=== PATIENT | male | born 1975 | race Caucasian/White ===

== ENCOUNTER 2021-01-23 01:20 | Emergency (ER) | payer OTHER ==
[~2021-01-23] VITALS: Ht 165.1 cm; Wt 126.6 kg
[2021-01-23 01:27] VITALS: BP 150/87
--- NOTE | 2021-01-23 01:35 | NUR ---
COVERING PRIMARY RN FOR LUNCH RELIEF--- SEE COMPLETE ASSESMENT
[2021-01-23] MEDS ORDERED: KETOROLAC 30 MG/ML VIAL IVP ONE (01:50)
[2021-01-23] MEDS ORDERED: NACL 0.9% 1,000 ML IV ONE (01:50)
--- NOTE | 2021-01-23 01:53 | NUR ---
ER MD AT BEDSIDE EVALUATING PT AT THIS TIME.
--- NOTE | 2021-01-23 02:06 | NUR ---
18 G IV SITE ESTABLISHED TO R AC. SITE IS PATENT FLUSHED WITH 10 ML OF 0.9% NS. NO C/O DISCOMFORT, REDNESS, OR SWELLING NOTED. BLOOD DRAW COLLECTED THROUGH SITE & GIVEN TO [employer] MANA[employer].
[2021-01-23 02:07] LABS: APPEARANCE,URINE CLEAR (CLEAR); BILIRUBIN,URINE NEGATIVE (NEGATIVE); BLOOD, URINE TRACE-I (NEGATIVE); COLOR,URINE YELLOW (YELLOW); LEUKOCYTE ESTERASE ,URINE NEGATIVE (NEGATIVE); NITRITE, URINE NEGATIVE (NEGATIVE); UGLUCOSE NEGATIVE (NEGATIVE)
[2021-01-23 02:10] LABS: BASOPHILS # (AUTO) 0.1 K/uL (0.00-0.22); EOSINOPHILS # (AUTO) 0.3 K/uL (0-0.4); EOSINOPHILS % (AUTO) 2.9 % (0.0-4.0); HEMATOCRIT 42.5 % (36-52); HEMOGLOBIN 14.1 g/dL (12.0-18.0); LYMPHOCYTES # (AUTO) 2.6 K/uL (2.0-11.5); LYMPHOCYTES % (AUTO) 25.7 % (20.5-51.1); MEAN CORPUSCULAR HEMOGLOBIN 28 pg (27-31); MEAN CORPUSCULAR HGB CONC 33 g/dL (33-37); MEAN CORPUSCULAR VOLUME 83.9 fL (80-94); MONOCYTES # (AUTO) 0.6 K/uL (0.8-1.0); MONOCYTES % (AUTO) 6.3 % (1.7-9.3); NEUTROPHILS # (AUTO) 6.5 K/uL (1.8-7.7); NEUTROPHILS % (AUTO) 64.1 % (42.2-75.2); PLATELET COUNT (AUTO) 377 K/uL (140-450); RED BLOOD CELL COUNT(AUTO) 5.06 MIL/uL (4.20-6.10); RED CELL DISTRIBUTION WIDTH 13.5 % (11.6-13.7); WHITE BLOOD COUNT (AUTO) 10.2 K/uL (4.8-10.8)
--- NOTE | 2021-01-23 02:19 | NUR ---
PT TAKEN TO CT VIA W/C.
--- NOTE | 2021-01-23 02:27 | NUR ---
PT RETURNED FROM CT SCAN.
[2021-01-23 02:32] LABS: RBC,URINE 0-5 /HPF (0-5)
[2021-01-23 02:37] LABS: ALBUMIN 3.3 g/dL (3.4-5.0); ANION GAP 14.3 (8-16); CARBON DIOXIDE 27.5 mmol/L (21-32); CREATININE 1.2 mg/dL (0.6-1.3); POTASSIUM 3.8 mmol/L (3.5-5.1); TOTAL BILIRUBIN 0.3 mg/dL (0.0-1.0)
--- NOTE | 2021-01-23 03:30 | NUR ---
PT laying in bed in no acute distress noted, breathing even and unlabored as evidence by rise and fall of chest wall. No c/o pain or discomfort at this time.
[2021-01-23] MEDS ORDERED: LEVOFLOXACIN 750 MG/D5W PREMIX 150 ML IV ONE (04:00)
[2021-01-23] MEDS ORDERED: metroNIDAZOLE 500 MG/NS PREMIX 100 ML IV ONE (04:00)
--- NOTE | 2021-01-23 04:21 | NUR ---
BLOOD CULTURES COLLECTED AND WALKED TO LAB.
[2021-01-23] MEDS ORDERED: CIPR250T6 PO (05:28)
[2021-01-23] MEDS ORDERED: METR500T1 PO (05:28)
--- NOTE | 2021-01-23 05:45 | NUR ---
Pt laying in bed in no acute distress noted, IVPB of Levaquin running at 100ml/hr.
--- NOTE | 2021-01-23 06:45 | NUR ---
Patient discharged with v/s stable. Written and verbal after care instructions given and explained BY ER MD CHAUDHRY. Patient alert, oriented and verbalized understanding of instructions. Ambulatory with steady gait. All questions addressed prior to discharge. ID band removed. Patient advised to follow up with PMD. Rx of CIPRO & FLAGYL given. Patient educated on indication of medication including possible reaction and side effects. Opportunity to ask questions provided and answered. IV removed, catheter intact and site benign. Applied folded 4x4 gauze and tape to stop bleeding.
[2021-01-23 06:50] VITALS: BP 144/78
== END 2021-01-23 06:50 | disposition home or self-care (01) ==
LOC: MED 01:20
DX: K57.32 Diverticulitis of large intestine without perforation or abscess without bleeding (principal)
CPT/HCPCS: 36415; 74176; 80053; 81001; 82150; 83690; 85025; 87040; 87086; 96361; 96365; 96367; 96375; 99284; J1885; J1956; J3490; J7030

== ENCOUNTER 2021-10-22 09:36 | Inpatient (IN) | payer MEDICAID, SELFPAY ==
[~2021-10-22] VITALS: Ht 185.4 cm; Wt 133.8 kg
[2021-10-22] VITALS (14 sets, daily range): BP systolic 75–108; BP diastolic 52–83
[~2021-10-22 09:36] MED LIST: CIPR250T6 PO; METR500T1 PO
[2021-10-22] MEDS ORDERED: NALOXONE 0.4 MG/ML VIAL ONE (09:38)
[2021-10-22] MEDS ORDERED: INTUBATION KIT MC ONE (09:42)
[2021-10-22] MEDS ORDERED: NOREPINEPHRINE 4 MG/4 ML VIAL IV ONE (09:52)
[2021-10-22] MEDS ORDERED: DEXTROSE 50% 50 ML SYR IVP ONE ×2 (09:59→10:10)
[2021-10-22] MEDS ORDERED: PROPOFOL 1000 MG/100 ML PREMIX 100 ML IV ONE ×2 (10:02→10:10)
[2021-10-22] MEDS ORDERED: NALOXONE 0.4 MG/ML VIAL IVP ONE (10:10)
[2021-10-22 11:12] LABS: HEMATOCRIT 45.8 % (36-52); HEMOGLOBIN 14.7 g/dL (12.0-18.0); MEAN CORPUSCULAR HEMOGLOBIN 28 pg (27-31); MEAN CORPUSCULAR HGB CONC 32 g/dL (33-37); MEAN CORPUSCULAR VOLUME 85.4 fL (80-94); PLATELET COUNT (AUTO) 286 K/uL (140-450); RED BLOOD CELL COUNT(AUTO) 5.36 MIL/uL (4.20-6.10); RED CELL DISTRIBUTION WIDTH 15.9 % (11.6-13.7); WHITE BLOOD COUNT (AUTO) 24.6 K/uL (4.8-10.8)
[2021-10-22 11:26] LABS: ALBUMIN 2.8 g/dL (3.4-5.0); ANION GAP 16.5 (8-16); CARBON DIOXIDE 26.4 mmol/L (21-32); CREATININE 2.9 mg/dL (0.6-1.3); POTASSIUM 4.9 mmol/L (3.5-5.1); TOTAL BILIRUBIN 0.2 mg/dL (0.0-1.0)
[2021-10-22] MEDS ORDERED: CEFEPIME 2,000 MG in DEXTROSE 5% 100 ML IV ONE (11:40)
[2021-10-22] MEDS ORDERED: VANCOMYCIN 1,000 MG in DEXTROSE 5% 250 ML IV ONE (11:40)
[2021-10-22] MEDS ORDERED: NACL 0.9% 1,000 ML IV ONE ×2 (11:40)
[2021-10-22] MEDS ORDERED: ETOMIDATE 20 MG/10 ML VIAL IVP ONE (12:00)
[2021-10-22] MEDS ORDERED: ROCURONIUM 50 MG/5 ML VIAL IV ONE (12:00)
[2021-10-22 12:12] LABS: LYMPHOCYTES % (MANUAL) 6 % (20-46); MONOCYTES % (MANUAL) 4 % (5-12)
[2021-10-22 12:19] LABS: ACETAMINOPHEN < 0.5 ug/ml (10-30); SALICYLATE < 2.8 mg/dL (2.8-20.0)
[2021-10-22 12:31] LABS: PROTHROMBIN TIME 13.4 secs (10.8-13.4)
[2021-10-22] MEDS ORDERED: fentaNYL citrate 1 MG in NACL 0.9% 80 ML IV PRN (13:35)
[2021-10-22] MEDS ORDERED: MIDAZOLAM MDV 50 MG in NACL 0.9% 40 ML IV PRN (13:35)
[2021-10-22 13:39] LABS: APPEARANCE,URINE HAZY (CLEAR); BILIRUBIN,URINE NEGATIVE (NEGATIVE); COLOR,URINE ORANGE (YELLOW); UGLUCOSE NEGATIVE (NEGATIVE)
[2021-10-22] MEDS ORDERED: ASPIRIN 325 MG TAB PO SCH (13:45)
[2021-10-22 13:48] LABS: BARBITURATE, URINE NEGATIVE ng/ml (NEG <=200); BENZODIAZEPINE, URINE NEGATIVE ng/mL (NEG <=200); CANNABINOID, URINE NEGATIVE ng/mL (NEG <=50); COCAINE, URINE NEGATIVE ng/mL (NEG <=300); OPIATE, URINE NEGATIVE ng/mL (NEG <=2000); PHENCYCLIDINE SCREEN,URINE NEGATIVE ng/mL (NEG <=25)
[2021-10-22 13:55] LABS: NITRITE, URINE POSITIVE (NEGATIVE)
[2021-10-22 13:56] LABS: BLOOD, URINE 1+ (NEGATIVE)
[2021-10-22 13:57] LABS: LEUKOCYTE ESTERASE ,URINE 1+ (NEGATIVE); RBC,URINE 0-5 /HPF (0-5)
[2021-10-22] MEDS ORDERED: ZOLPIDEM 5 MG TAB PO PRN (14:55)
[2021-10-22] MEDS ORDERED: MAG SULF 2000 MG/WATER PREMIX 50 ML IV PRN (14:55)
[2021-10-22] MEDS ORDERED: SODIUM PHOS / POTASSIUM PHOS 1 PKT PDR PO PRN (14:55)
[2021-10-22] MEDS ORDERED: HYDROcodone/APAP 5/325 MG 1 TAB TAB PO PRN (14:55)
[2021-10-22] MEDS ORDERED: ONDANSETRON 4 MG/2 ML VIAL IVP PRN (14:55)
[2021-10-22] MEDS ORDERED: LORazepam 2 MG/ML VIAL IM/IVP PRN (14:55)
[2021-10-22] MEDS ORDERED: MORPHINE SULFATE 2 MG/ML SYR IVP PRN (14:55)
[2021-10-22] MEDS ORDERED: DOCUSATE SODIUM 100 MG GELCAP PO PRN (14:55)
[2021-10-22] MEDS ORDERED: ACETAMINOPHEN 325 MG TAB PO PRN (14:55)
[2021-10-22 15:47] LABS: PROTHROMBIN TIME 12.5 secs (10.8-13.4)
[2021-10-22 15:58] LABS: CHOL/HDL RATIO 2.8 (1-4.5); FREE T4 (FREE THYROXINE) 0.91 ng/dL (0.76-1.46); PHOSPHORUS 6.5 mg/dL (2.5-4.9); THYROID STIMULATING HORMONE 4.88 uIU/mL (0.34-3.74)
[2021-10-22] MEDS: fentaNYL citrate 2.5 MG in NACL 0.9% 200 ML IV PRN (16:20)
[2021-10-22] MEDS: NACL 0.9% 1,000 ML IV SCH (16:20)
[2021-10-22] MEDS ORDERED: HEPARIN PER PHARMACY MC PRN (17:30)
[2021-10-22] MEDS ORDERED: ASPIRIN 325 MG TAB ONE (17:47)
[2021-10-22] MEDS: hePARIN / DEXT 5% PREMIX 250 ML IV SCH (18:05)
[2021-10-22] MEDS: NOREPINEPHRINE 8 MG in DEXTROSE 5% 250 ML IV PRN (18:24)
[2021-10-22] MEDS: PIPERACILLIN/TAZOBACTAM 3.375 GM in DEXTROSE 5% 50 ML IV SCH (20:40)
[2021-10-23] VITALS (31 sets, daily range): BP systolic 79–128; BP diastolic 51–92
[2021-10-23] MEDS: PIPERACILLIN/TAZOBACTAM 3.375 GM in DEXTROSE 5% 50 ML IV SCH ×3 (05:30→20:12)
[2021-10-23 06:02] LABS: BASOPHILS % (AUTO) 0.1 % (0.0-2.0); EOSINOPHILS % (AUTO) 0.1 % (0.0-4.0); HEMATOCRIT 42.6 % (36-52); HEMOGLOBIN 13.9 g/dL (12.0-18.0); LYMPHOCYTES # (AUTO) 0.7 K/uL (2.0-11.5); LYMPHOCYTES % (AUTO) 5.8 % (20.5-51.1); MEAN CORPUSCULAR HEMOGLOBIN 27 pg (27-31); MEAN CORPUSCULAR HGB CONC 33 g/dL (33-37); MEAN CORPUSCULAR VOLUME 83.5 fL (80-94); MONOCYTES # (AUTO) 0.7 K/uL (0.8-1.0); MONOCYTES % (AUTO) 5.2 % (1.7-9.3); NEUTROPHILS # (AUTO) 11.5 K/uL (1.8-7.7); NEUTROPHILS % (AUTO) 88.8 % (42.2-75.2); PLATELET COUNT (AUTO) 279 K/uL (140-450); RED CELL DISTRIBUTION WIDTH 15.2 % (11.6-13.7); WHITE BLOOD COUNT (AUTO) 12.9 K/uL (4.8-10.8)
[2021-10-23 06:23] LABS: ALBUMIN 2.1 g/dL (3.4-5.0); ANION GAP 14.8 (8-16); CARBON DIOXIDE 24.7 mmol/L (21-32); CREATININE 3.3 mg/dL (0.6-1.3); POTASSIUM 4.5 mmol/L (3.5-5.1); TOTAL BILIRUBIN 0.3 mg/dL (0.0-1.0)
[2021-10-23] MEDS ORDERED: NOREPINEPHRINE 4 MG/4 ML VIAL IV ONE (07:36)
[2021-10-23] MEDS: NOREPINEPHRINE 8 MG in DEXTROSE 5% 250 ML IV PRN (07:44)
[2021-10-23] MEDS: ASPIRIN 81 MG TAB.CHEW PO SCH (08:48)
[2021-10-23] MEDS: NACL 0.9% 1,000 ML IV SCH ×3 (09:40→20:13)
[2021-10-23] MEDS: hePARIN / DEXT 5% PREMIX 250 ML IV SCH (13:30)
[2021-10-24] VITALS (27 sets, daily range): BP systolic 107–141; BP diastolic 61–88
[2021-10-24] MEDS: fentaNYL citrate 2.5 MG in NACL 0.9% 200 ML IV PRN (02:38)
[2021-10-24 05:17] LABS: BASOPHILS % (AUTO) 0.1 % (0.0-2.0); EOSINOPHILS % (AUTO) 0.2 % (0.0-4.0); HEMATOCRIT 39.9 % (36-52); HEMOGLOBIN 12.7 g/dL (12.0-18.0); LYMPHOCYTES # (AUTO) 1.6 K/uL (2.0-11.5); LYMPHOCYTES % (AUTO) 13.3 % (20.5-51.1); MEAN CORPUSCULAR HEMOGLOBIN 27 pg (27-31); MEAN CORPUSCULAR HGB CONC 32 g/dL (33-37); MEAN CORPUSCULAR VOLUME 85.3 fL (80-94); MONOCYTES # (AUTO) 0.7 K/uL (0.8-1.0); NEUTROPHILS # (AUTO) 9.4 K/uL (1.8-7.7); NEUTROPHILS % (AUTO) 80.4 % (42.2-75.2); PLATELET COUNT (AUTO) 220 K/uL (140-450); RED BLOOD CELL COUNT(AUTO) 4.67 MIL/uL (4.20-6.10); RED CELL DISTRIBUTION WIDTH 16.1 % (11.6-13.7); WHITE BLOOD COUNT (AUTO) 11.7 K/uL (4.8-10.8)
[2021-10-24 05:45] LABS: ALBUMIN 1.8 g/dL (3.4-5.0); ANION GAP 13.3 (8-16); CREATININE 2.8 mg/dL (0.6-1.3); MAGNESIUM 2.2 mg/dL (1.8-2.4); POTASSIUM 4.3 mmol/L (3.5-5.1); TOTAL BILIRUBIN 0.2 mg/dL (0.0-1.0)
[2021-10-24] MEDS: PIPERACILLIN/TAZOBACTAM 3.375 GM in DEXTROSE 5% 50 ML IV SCH ×2 (05:54→12:31)
[2021-10-24] MEDS: hePARIN / DEXT 5% PREMIX 250 ML IV SCH ×4 (06:40→21:46)
[2021-10-24] MEDS: NACL 0.9% 1,000 ML IV SCH ×3 (07:05→20:26)
[2021-10-24] MEDS: ASPIRIN 81 MG TAB.CHEW PO SCH (09:08)
[2021-10-24] MEDS ORDERED: MEROPENEM 1,000 MG VIAL IV ONE (20:41)
[2021-10-24] MEDS: MEROPENEM 1,000 MG in NACL 0.9% 100 ML IV SCH (20:46)
[2021-10-25] VITALS (32 sets, daily range): BP systolic 97–164; BP diastolic 60–99
[2021-10-25 03:17] LABS: BASOPHILS # (AUTO) 0.1 K/uL (0.00-0.22); BASOPHILS % (AUTO) 0.4 % (0.0-2.0); EOSINOPHILS # (AUTO) 0.1 K/uL (0-0.4); HEMATOCRIT 35.7 % (36-52); HEMOGLOBIN 11.8 g/dL (12.0-18.0); LYMPHOCYTES # (AUTO) 2.2 K/uL (2.0-11.5); LYMPHOCYTES % (AUTO) 18.1 % (20.5-51.1); MEAN CORPUSCULAR HEMOGLOBIN 28 pg (27-31); MEAN CORPUSCULAR HGB CONC 33 g/dL (33-37); MEAN CORPUSCULAR VOLUME 83.3 fL (80-94); MONOCYTES # (AUTO) 0.9 K/uL (0.8-1.0); MONOCYTES % (AUTO) 7.1 % (1.7-9.3); NEUTROPHILS # (AUTO) 9.1 K/uL (1.8-7.7); NEUTROPHILS % (AUTO) 73.4 % (42.2-75.2); PLATELET COUNT (AUTO) 237 K/uL (140-450); RED BLOOD CELL COUNT(AUTO) 4.29 MIL/uL (4.20-6.10); WHITE BLOOD COUNT (AUTO) 12.4 K/uL (4.8-10.8)
[2021-10-25 03:36] LABS: ALBUMIN 1.9 g/dL (3.4-5.0); ANION GAP 13.4 (8-16); CARBON DIOXIDE 25.7 mmol/L (21-32); CREATININE 2.1 mg/dL (0.6-1.3); MAGNESIUM 2.5 mg/dL (1.8-2.4); POTASSIUM 4.1 mmol/L (3.5-5.1); TOTAL BILIRUBIN 0.4 mg/dL (0.0-1.0)
[2021-10-25] MEDS: hePARIN / DEXT 5% PREMIX 250 ML IV SCH ×3 (03:56→20:10)
[2021-10-25] MEDS: MIDAZOLAM MDV 100 MG in NACL 0.9% 80 ML IV PRN (05:28)
[2021-10-25] MEDS: ASPIRIN 81 MG TAB.CHEW PO SCH (08:48)
[2021-10-25] MEDS: MEROPENEM 1,000 MG in NACL 0.9% 100 ML IV SCH ×2 (08:49→20:09)
[2021-10-25 08:58] LABS: PROTHROMBIN TIME 10.2 secs (10.8-13.4)
[2021-10-25] MEDS: NACL 0.9% 1,000 ML IV SCH ×2 (12:43→23:04)
[2021-10-26] VITALS (30 sets, daily range): BP systolic 102–168; BP diastolic 63–93
[2021-10-26] MEDS: MIDAZOLAM MDV 100 MG in NACL 0.9% 80 ML IV PRN ×2 (02:38→18:30)
[2021-10-26] MEDS: fentaNYL citrate 2.5 MG in NACL 0.9% 200 ML IV PRN ×2 (06:04→18:25)
[2021-10-26 06:35] LABS: BASOPHILS # (AUTO) 0.1 K/uL (0.00-0.22); BASOPHILS % (AUTO) 0.6 % (0.0-2.0); EOSINOPHILS # (AUTO) 0.3 K/uL (0-0.4); HEMATOCRIT 33.1 % (36-52); HEMOGLOBIN 10.9 g/dL (12.0-18.0); LYMPHOCYTES # (AUTO) 1.8 K/uL (2.0-11.5); LYMPHOCYTES % (AUTO) 17.3 % (20.5-51.1); MEAN CORPUSCULAR HEMOGLOBIN 28 pg (27-31); MEAN CORPUSCULAR HGB CONC 33 g/dL (33-37); MEAN CORPUSCULAR VOLUME 83.7 fL (80-94); MONOCYTES # (AUTO) 0.7 K/uL (0.8-1.0); MONOCYTES % (AUTO) 6.7 % (1.7-9.3); NEUTROPHILS # (AUTO) 7.4 K/uL (1.8-7.7); NEUTROPHILS % (AUTO) 72.4 % (42.2-75.2); PLATELET COUNT (AUTO) 223 K/uL (140-450); RED BLOOD CELL COUNT(AUTO) 3.95 MIL/uL (4.20-6.10); RED CELL DISTRIBUTION WIDTH 15.7 % (11.6-13.7); WHITE BLOOD COUNT (AUTO) 10.3 K/uL (4.8-10.8)
[2021-10-26 07:34] LABS: ALBUMIN 1.7 g/dL (3.4-5.0); ANION GAP 14.1 (8-16); CARBON DIOXIDE 25.2 mmol/L (21-32); CREATININE 1.5 mg/dL (0.6-1.3); MAGNESIUM 2.2 mg/dL (1.8-2.4); POTASSIUM 3.3 mmol/L (3.5-5.1); TOTAL BILIRUBIN 0.3 mg/dL (0.0-1.0)
[2021-10-26] MEDS: hePARIN / DEXT 5% PREMIX 250 ML IV SCH ×3 (08:30→18:23)
[2021-10-26] MEDS: NACL 0.9% 1,000 ML IV SCH (08:45)
[2021-10-26] MEDS: ASPIRIN 81 MG TAB.CHEW PO SCH (08:55)
[2021-10-26] MEDS: MEROPENEM 1,000 MG in NACL 0.9% 100 ML IV SCH ×2 (08:55→21:31)
[2021-10-26] MEDS: FUROSEMIDE 40 MG/4 ML VIAL IVP SCH (17:08)
[2021-10-27] VITALS (31 sets, daily range): BP systolic 117–155; BP diastolic 59–97
[2021-10-27] MEDS: hePARIN / DEXT 5% PREMIX 250 ML IV SCH (05:07)
[2021-10-27 06:21] LABS: BASOPHILS # (AUTO) 0.1 K/uL (0.00-0.22); BASOPHILS % (AUTO) 0.7 % (0.0-2.0); EOSINOPHILS # (AUTO) 0.5 K/uL (0-0.4); EOSINOPHILS % (AUTO) 4.2 % (0.0-4.0); HEMATOCRIT 34.8 % (36-52); HEMOGLOBIN 11.6 g/dL (12.0-18.0); LYMPHOCYTES # (AUTO) 2.2 K/uL (2.0-11.5); LYMPHOCYTES % (AUTO) 18.1 % (20.5-51.1); MEAN CORPUSCULAR HEMOGLOBIN 28 pg (27-31); MEAN CORPUSCULAR HGB CONC 33 g/dL (33-37); MEAN CORPUSCULAR VOLUME 82.8 fL (80-94); MONOCYTES # (AUTO) 0.9 K/uL (0.8-1.0); MONOCYTES % (AUTO) 7.4 % (1.7-9.3); NEUTROPHILS # (AUTO) 8.5 K/uL (1.8-7.7); NEUTROPHILS % (AUTO) 69.6 % (42.2-75.2); PLATELET COUNT (AUTO) 251 K/uL (140-450); RED CELL DISTRIBUTION WIDTH 15.8 % (11.6-13.7); WHITE BLOOD COUNT (AUTO) 12.2 K/uL (4.8-10.8)
[2021-10-27 06:22] LABS: PROTHROMBIN TIME 10.1 secs (10.8-13.4)
[2021-10-27 07:02] LABS: ALBUMIN 1.8 g/dL (3.4-5.0); ANION GAP 11.8 (8-16); CARBON DIOXIDE 26.6 mmol/L (21-32); CREATININE 1.3 mg/dL (0.6-1.3); MAGNESIUM 2.1 mg/dL (1.8-2.4); POTASSIUM 3.4 mmol/L (3.5-5.1); TOTAL BILIRUBIN 0.3 mg/dL (0.0-1.0)
[2021-10-27] MEDS: fentaNYL citrate 2.5 MG in NACL 0.9% 200 ML IV PRN (07:32)
[2021-10-27] MEDS: MEROPENEM 1,000 MG in NACL 0.9% 100 ML IV SCH ×2 (09:13→20:22)
[2021-10-27] MEDS: FUROSEMIDE 40 MG/4 ML VIAL IVP SCH (09:14)
[2021-10-27] MEDS: ASPIRIN 81 MG TAB.CHEW PO SCH (09:14)
[2021-10-27 16:05] LABS: ALBUMIN 1.9 g/dL (3.4-5.0); ANION GAP 9.4 (8-16); CARBON DIOXIDE 29.7 mmol/L (21-32); CREATININE 1.4 mg/dL (0.6-1.3); POTASSIUM 3.1 mmol/L (3.5-5.1); TOTAL BILIRUBIN 0.4 mg/dL (0.0-1.0)
[2021-10-27] MEDS: POTASSIUM CHLORIDE 10 MEQ TABER PO PRN (16:36)
[2021-10-27] MEDS: MIDAZOLAM MDV 100 MG in NACL 0.9% 80 ML IV PRN (18:15)
[2021-10-28] VITALS (28 sets, daily range): BP systolic 120–140; BP diastolic 78–98
[2021-10-28 05:43] LABS: BASOPHILS % (AUTO) 0.3 % (0.0-2.0); EOSINOPHILS # (AUTO) 0.4 K/uL (0-0.4); EOSINOPHILS % (AUTO) 3.2 % (0.0-4.0); HEMATOCRIT 35.2 % (36-52); HEMOGLOBIN 11.8 g/dL (12.0-18.0); LYMPHOCYTES # (AUTO) 1.7 K/uL (2.0-11.5); MEAN CORPUSCULAR HEMOGLOBIN 27 pg (27-31); MEAN CORPUSCULAR HGB CONC 33 g/dL (33-37); MEAN CORPUSCULAR VOLUME 81.7 fL (80-94); MONOCYTES % (AUTO) 7.3 % (1.7-9.3); NEUTROPHILS % (AUTO) 76.2 % (42.2-75.2); PLATELET COUNT (AUTO) 264 K/uL (140-450); RED BLOOD CELL COUNT(AUTO) 4.31 MIL/uL (4.20-6.10); RED CELL DISTRIBUTION WIDTH 15.3 % (11.6-13.7); WHITE BLOOD COUNT (AUTO) 13.1 K/uL (4.8-10.8)
[2021-10-28 06:06] LABS: ALBUMIN 1.8 g/dL (3.4-5.0); ANION GAP 8.9 (8-16); CARBON DIOXIDE 29.5 mmol/L (21-32); CREATININE 1.3 mg/dL (0.6-1.3); POTASSIUM 3.4 mmol/L (3.5-5.1); TOTAL BILIRUBIN 0.4 mg/dL (0.0-1.0)
[2021-10-28 06:09] LABS: PHOSPHORUS 4.7 mg/dL (2.5-4.9)
[2021-10-28] MEDS: fentaNYL citrate 2.5 MG in NACL 0.9% 200 ML IV PRN ×2 (08:18→20:26)
[2021-10-28] MEDS: MEROPENEM 1,000 MG in NACL 0.9% 100 ML IV SCH ×2 (09:29→20:33)
[2021-10-28] MEDS: FUROSEMIDE 40 MG/4 ML VIAL IVP SCH (09:29)
[2021-10-28] MEDS: ASPIRIN 81 MG TAB.CHEW PO SCH (09:30)
[2021-10-28] MEDS: POTASSIUM CHLORIDE 10 MEQ TABER PO PRN (09:52)
[2021-10-29] VITALS (32 sets, daily range): BP systolic 105–127; BP diastolic 66–86
[2021-10-29 05:59] LABS: ALBUMIN 1.8 g/dL (3.4-5.0); ANION GAP 10.9 (8-16); CARBON DIOXIDE 26.9 mmol/L (21-32); CREATININE 1.3 mg/dL (0.6-1.3); POTASSIUM 3.8 mmol/L (3.5-5.1); TOTAL BILIRUBIN 0.3 mg/dL (0.0-1.0)
[2021-10-29 06:31] LABS: BASOPHILS % (AUTO) 0.4 % (0.0-2.0); EOSINOPHILS # (AUTO) 0.4 K/uL (0-0.4); EOSINOPHILS % (AUTO) 3.4 % (0.0-4.0); HEMATOCRIT 35.2 % (36-52); HEMOGLOBIN 11.6 g/dL (12.0-18.0); LYMPHOCYTES # (AUTO) 1.9 K/uL (2.0-11.5); LYMPHOCYTES % (AUTO) 14.7 % (20.5-51.1); MEAN CORPUSCULAR HEMOGLOBIN 27 pg (27-31); MEAN CORPUSCULAR HGB CONC 33 g/dL (33-37); MEAN CORPUSCULAR VOLUME 82.8 fL (80-94); MONOCYTES # (AUTO) 0.9 K/uL (0.8-1.0); MONOCYTES % (AUTO) 7.4 % (1.7-9.3); NEUTROPHILS # (AUTO) 9.4 K/uL (1.8-7.7); NEUTROPHILS % (AUTO) 74.1 % (42.2-75.2); PLATELET COUNT (AUTO) 297 K/uL (140-450); RED BLOOD CELL COUNT(AUTO) 4.25 MIL/uL (4.20-6.10); RED CELL DISTRIBUTION WIDTH 15.3 % (11.6-13.7)
[2021-10-29 07:32] LABS: WHITE BLOOD COUNT (AUTO) 12.8 K/uL (4.8-10.8)
[2021-10-29] MEDS: MEROPENEM 1,000 MG in NACL 0.9% 100 ML IV SCH ×2 (09:16→20:30)
[2021-10-29] MEDS: PANTOPRAZOLE 40 MG INJ VIAL IVP SCH (09:16)
[2021-10-29] MEDS: FUROSEMIDE 40 MG/4 ML VIAL IVP SCH (09:17)
[2021-10-29] MEDS: ASPIRIN 81 MG TAB.CHEW PO SCH (09:17)
[2021-10-29] MEDS: fentaNYL citrate 2.5 MG in NACL 0.9% 200 ML IV PRN (13:17)
[2021-10-29] MEDS ORDERED: VANCOMYCIN PER PHARMACY MC PRN (16:00)
[2021-10-29] MEDS ORDERED: VANCOMYCIN 1,500 MG in DEXTROSE 5% 500 ML IV SCH (17:00)
[2021-10-29] MEDS: MIDAZOLAM MDV 100 MG in NACL 0.9% 80 ML IV PRN (18:37)
[2021-10-30] VITALS (30 sets, daily range): BP systolic 109–140; BP diastolic 71–89
[2021-10-30] MEDS: fentaNYL citrate 2.5 MG in NACL 0.9% 200 ML IV PRN ×2 (01:30→13:27)
[2021-10-30 06:23] LABS: BASOPHILS # (AUTO) 0.1 K/uL (0.00-0.22); BASOPHILS % (AUTO) 0.6 % (0.0-2.0); EOSINOPHILS # (AUTO) 0.5 K/uL (0-0.4); EOSINOPHILS % (AUTO) 4.3 % (0.0-4.0); HEMOGLOBIN 11.8 g/dL (12.0-18.0); LYMPHOCYTES # (AUTO) 2.4 K/uL (2.0-11.5); LYMPHOCYTES % (AUTO) 19.3 % (20.5-51.1); MEAN CORPUSCULAR HEMOGLOBIN 27 pg (27-31); MEAN CORPUSCULAR HGB CONC 33 g/dL (33-37); MEAN CORPUSCULAR VOLUME 82.9 fL (80-94); MONOCYTES # (AUTO) 0.9 K/uL (0.8-1.0); MONOCYTES % (AUTO) 7.2 % (1.7-9.3); NEUTROPHILS # (AUTO) 8.5 K/uL (1.8-7.7); PLATELET COUNT (AUTO) 315 K/uL (140-450); RED BLOOD CELL COUNT(AUTO) 4.35 MIL/uL (4.20-6.10); RED CELL DISTRIBUTION WIDTH 15.1 % (11.6-13.7); WHITE BLOOD COUNT (AUTO) 12.5 K/uL (4.8-10.8)
[2021-10-30 06:37] LABS: NEUTROPHILS % (AUTO) 68.6 % (42.2-75.2)
[2021-10-30] MEDS: PANTOPRAZOLE 40 MG INJ VIAL IVP SCH ×2 (08:50→08:52)
[2021-10-30] MEDS: ASPIRIN 81 MG TAB.CHEW PO SCH (08:53)
[2021-10-30] MEDS: FUROSEMIDE 40 MG/4 ML VIAL IVP SCH (08:53)
[2021-10-30] MEDS: MEROPENEM 1,000 MG in NACL 0.9% 100 ML IV SCH ×2 (08:54→20:30)
[2021-10-30] MEDS: VANCOMYCIN 1,000 MG in DEXTROSE 5% 250 ML IV SCH ×2 (12:00→16:09)
[2021-10-30 15:52] LABS: ALBUMIN 2.1 g/dL (3.4-5.0); ANION GAP 14.3 (8-16); CARBON DIOXIDE 27.2 mmol/L (21-32); CREATININE 1.3 mg/dL (0.6-1.3); POTASSIUM 3.5 mmol/L (3.5-5.1); TOTAL BILIRUBIN 0.4 mg/dL (0.0-1.0)
[2021-10-31] VITALS (30 sets, daily range): BP systolic 107–168; BP diastolic 66–114
[2021-10-31 06:24] LABS: BASOPHILS % (AUTO) 0.3 % (0.0-2.0); EOSINOPHILS # (AUTO) 0.2 K/uL (0-0.4); EOSINOPHILS % (AUTO) 1.9 % (0.0-4.0); HEMATOCRIT 34.6 % (36-52); HEMOGLOBIN 11.5 g/dL (12.0-18.0); LYMPHOCYTES # (AUTO) 1.4 K/uL (2.0-11.5); LYMPHOCYTES % (AUTO) 11.8 % (20.5-51.1); MEAN CORPUSCULAR HEMOGLOBIN 27 pg (27-31); MEAN CORPUSCULAR HGB CONC 33 g/dL (33-37); MONOCYTES # (AUTO) 0.8 K/uL (0.8-1.0); MONOCYTES % (AUTO) 6.7 % (1.7-9.3); NEUTROPHILS # (AUTO) 9.3 K/uL (1.8-7.7); NEUTROPHILS % (AUTO) 79.3 % (42.2-75.2); PLATELET COUNT (AUTO) 347 K/uL (140-450); RED BLOOD CELL COUNT(AUTO) 4.22 MIL/uL (4.20-6.10); RED CELL DISTRIBUTION WIDTH 14.9 % (11.6-13.7); WHITE BLOOD COUNT (AUTO) 11.8 K/uL (4.8-10.8)
[2021-10-31] MEDS: FUROSEMIDE 40 MG/4 ML VIAL IVP SCH (08:32)
[2021-10-31] MEDS: ASPIRIN 81 MG TAB.CHEW PO SCH (08:32)
[2021-10-31] MEDS: PANTOPRAZOLE 40 MG INJ VIAL IVP SCH (08:32)
[2021-10-31] MEDS: MEROPENEM 1,000 MG in NACL 0.9% 100 ML IV SCH ×2 (09:29→20:00)
[2021-10-31] MEDS: MIDAZOLAM MDV 50 MG in NACL 0.9% 40 ML IV PRN (09:34)
[2021-10-31] MEDS ORDERED: VANCOMYCIN 1,750 MG in DEXTROSE 5% 500 ML IV SCH (10:00)
[2021-10-31 14:58] LABS: ANION GAP 11.3 (8-16); CARBON DIOXIDE 29.4 mmol/L (21-32); CREATININE 1.2 mg/dL (0.6-1.3); POTASSIUM 3.7 mmol/L (3.5-5.1); TOTAL BILIRUBIN 0.4 mg/dL (0.0-1.0)
[2021-10-31] MEDS: fentaNYL citrate 2.5 MG in NACL 0.9% 200 ML IV PRN (15:55)
[2021-11-01] VITALS (25 sets, daily range): BP systolic 105–144; BP diastolic 66–93
[2021-11-01] MEDS: MEROPENEM 1,000 MG in NACL 0.9% 100 ML IV SCH ×3 (04:20→21:00)
[2021-11-01] MEDS: fentaNYL citrate 2.5 MG in NACL 0.9% 200 ML IV PRN ×2 (04:20→15:20)
[2021-11-01 05:42] LABS: BASOPHILS # (AUTO) 0.1 K/uL (0.00-0.22); BASOPHILS % (AUTO) 0.4 % (0.0-2.0); EOSINOPHILS # (AUTO) 0.5 K/uL (0-0.4); EOSINOPHILS % (AUTO) 3.3 % (0.0-4.0); HEMATOCRIT 35.7 % (36-52); HEMOGLOBIN 11.8 g/dL (12.0-18.0); LYMPHOCYTES # (AUTO) 2.6 K/uL (2.0-11.5); LYMPHOCYTES % (AUTO) 18.8 % (20.5-51.1); MEAN CORPUSCULAR HEMOGLOBIN 27 pg (27-31); MEAN CORPUSCULAR HGB CONC 33 g/dL (33-37); MEAN CORPUSCULAR VOLUME 83.3 fL (80-94); MONOCYTES # (AUTO) 0.9 K/uL (0.8-1.0); MONOCYTES % (AUTO) 6.5 % (1.7-9.3); NEUTROPHILS # (AUTO) 9.8 K/uL (1.8-7.7); PLATELET COUNT (AUTO) 373 K/uL (140-450); RED BLOOD CELL COUNT(AUTO) 4.28 MIL/uL (4.20-6.10); RED CELL DISTRIBUTION WIDTH 15.1 % (11.6-13.7); WHITE BLOOD COUNT (AUTO) 13.8 K/uL (4.8-10.8)
[2021-11-01] MEDS: PANTOPRAZOLE 40 MG INJ VIAL IVP SCH (08:51)
[2021-11-01] MEDS: FUROSEMIDE 40 MG/4 ML VIAL IVP SCH (08:51)
[2021-11-01] MEDS: ASPIRIN 81 MG TAB.CHEW PO SCH (08:51)
[2021-11-01] MEDS ORDERED: VANCOMYCIN 1,500 MG in DEXTROSE 5% 500 ML IV SCH (11:00)
[2021-11-01] MEDS: NYSTATIN POW 100 MU/GM 15 GM BTL TP SCH (13:00)
[2021-11-01] MEDS ORDERED: MEROPENEM 1,000 MG VIAL IV ONE (20:50)
[2021-11-01] MEDS: MIDAZOLAM MDV 50 MG in NACL 0.9% 40 ML IV PRN (21:37)
[2021-11-02] VITALS (27 sets, daily range): BP systolic 100–147; BP diastolic 57–93
[2021-11-02] MEDS: NYSTATIN POW 100 MU/GM 15 GM BTL TP SCH ×2 (00:43→12:11)
[2021-11-02] MEDS: fentaNYL citrate 2.5 MG in NACL 0.9% 200 ML IV PRN (04:14)
[2021-11-02] MEDS: FUROSEMIDE 40 MG/4 ML VIAL IVP SCH (08:15)
[2021-11-02] MEDS: ASPIRIN 81 MG TAB.CHEW PO SCH (08:15)
[2021-11-02] MEDS: PANTOPRAZOLE 40 MG INJ VIAL IVP SCH (08:15)
[2021-11-02] MEDS: MEROPENEM 1,000 MG in NACL 0.9% 100 ML IV SCH ×2 (08:16→21:00)
[2021-11-02 09:54] LABS: ALBUMIN 1.9 g/dL (3.4-5.0); ANION GAP 14.4 (8-16); CARBON DIOXIDE 26.3 mmol/L (21-32); CREATININE 1.1 mg/dL (0.6-1.3); POTASSIUM 3.7 mmol/L (3.5-5.1); TOTAL BILIRUBIN 0.5 mg/dL (0.0-1.0)
[2021-11-02] MEDS: VANCOMYCIN 1,500 MG in DEXTROSE 5% 500 ML IV SCH (11:19)
[2021-11-02] MEDS: Z-GUARD PASTE TP SCH (12:11)
[2021-11-02] MEDS ORDERED: MIDAZOLAM MDV 100 MG in NACL 0.9% 80 ML IV PRN (14:10)
[2021-11-03] VITALS (30 sets, daily range): BP systolic 83–149; BP diastolic 51–81
[2021-11-03] MEDS: Z-GUARD PASTE TP SCH ×2 (01:00→13:02)
[2021-11-03] MEDS: NYSTATIN POW 100 MU/GM 15 GM BTL TP SCH ×2 (01:00→13:01)
[2021-11-03 05:52] LABS: BASOPHILS # (AUTO) 0.1 K/uL (0.00-0.22); BASOPHILS % (AUTO) 0.6 % (0.0-2.0); EOSINOPHILS # (AUTO) 0.6 K/uL (0-0.4); EOSINOPHILS % (AUTO) 4.6 % (0.0-4.0); HEMATOCRIT 33.4 % (36-52); LYMPHOCYTES # (AUTO) 1.9 K/uL (2.0-11.5); LYMPHOCYTES % (AUTO) 15.5 % (20.5-51.1); MEAN CORPUSCULAR HEMOGLOBIN 28 pg (27-31); MEAN CORPUSCULAR HGB CONC 33 g/dL (33-37); MEAN CORPUSCULAR VOLUME 83.5 fL (80-94); MONOCYTES # (AUTO) 0.8 K/uL (0.8-1.0); MONOCYTES % (AUTO) 6.2 % (1.7-9.3); NEUTROPHILS % (AUTO) 73.1 % (42.2-75.2); PLATELET COUNT (AUTO) 445 K/uL (140-450); RED BLOOD CELL COUNT(AUTO) 4.01 MIL/uL (4.20-6.10); RED CELL DISTRIBUTION WIDTH 14.7 % (11.6-13.7); WHITE BLOOD COUNT (AUTO) 12.3 K/uL (4.8-10.8)
[2021-11-03 06:34] LABS: ANION GAP 11.1 (8-16); CARBON DIOXIDE 27.3 mmol/L (21-32); CREATININE 1.1 mg/dL (0.6-1.3); POTASSIUM 3.4 mmol/L (3.5-5.1)
[2021-11-03] MEDS ORDERED: FUROSEMIDE 20 MG/2 ML VIAL IVP ONE (08:33)
[2021-11-03 08:47] LABS: PHOSPHORUS 4.1 mg/dL (2.5-4.9)
[2021-11-03] MEDS ORDERED: FUROSEMIDE 20 MG/2 ML VIAL IVP SCH (09:00)
[2021-11-03] MEDS: MEROPENEM 1,000 MG in NACL 0.9% 100 ML IV SCH ×2 (09:31→21:18)
[2021-11-03] MEDS: FUROSEMIDE 40 MG/4 ML VIAL IVP SCH (09:31)
[2021-11-03] MEDS: ASPIRIN 81 MG TAB.CHEW PO SCH (09:32)
[2021-11-03] MEDS: PANTOPRAZOLE 40 MG INJ VIAL IVP SCH (09:32)
[2021-11-03] MEDS: POLYETHYLENE GLYCOL 17 GM/PKT NG SCH (09:32)
[2021-11-03] MEDS: POTASSIUM CHLORIDE 10 MEQ TABER PO PRN (09:40)
[2021-11-03] MEDS ORDERED: DEXMEDETOMIDINE HCL 400 MCG in NACL 0.9% 96 ML IV PRN (10:40)
[2021-11-03] MEDS: VANCOMYCIN 1,500 MG in DEXTROSE 5% 500 ML IV SCH (11:00)
[2021-11-03] MEDS: DEXMEDETOMIDINE HCL 400 MCG in NACL 0.9% 96 ML IV PRN ×3 (12:00→23:39)
[2021-11-03] MEDS: fentaNYL citrate 2.5 MG in NACL 0.9% 200 ML IV PRN (17:11)
[2021-11-03] MEDS: NOREPINEPHRINE 8 MG in DEXTROSE 5% 250 ML IV PRN (19:00)
[2021-11-04] VITALS (27 sets, daily range): BP systolic 87–133; BP diastolic 54–92
[2021-11-04] MEDS: Z-GUARD PASTE TP SCH ×2 (04:00→13:00)
[2021-11-04] MEDS: NYSTATIN POW 100 MU/GM 15 GM BTL TP SCH ×2 (04:00→13:00)
[2021-11-04 05:36] LABS: BASOPHILS % (AUTO) 0.4 % (0.0-2.0); EOSINOPHILS # (AUTO) 0.4 K/uL (0-0.4); EOSINOPHILS % (AUTO) 4.1 % (0.0-4.0); HEMATOCRIT 33.8 % (36-52); HEMOGLOBIN 11.4 g/dL (12.0-18.0); LYMPHOCYTES # (AUTO) 1.6 K/uL (2.0-11.5); LYMPHOCYTES % (AUTO) 17.8 % (20.5-51.1); MEAN CORPUSCULAR HEMOGLOBIN 28 pg (27-31); MEAN CORPUSCULAR HGB CONC 34 g/dL (33-37); MEAN CORPUSCULAR VOLUME 82.7 fL (80-94); MONOCYTES # (AUTO) 0.7 K/uL (0.8-1.0); MONOCYTES % (AUTO) 7.3 % (1.7-9.3); NEUTROPHILS # (AUTO) 6.5 K/uL (1.8-7.7); NEUTROPHILS % (AUTO) 70.4 % (42.2-75.2); PLATELET COUNT (AUTO) 441 K/uL (140-450); RED BLOOD CELL COUNT(AUTO) 4.09 MIL/uL (4.20-6.10); RED CELL DISTRIBUTION WIDTH 14.6 % (11.6-13.7); WHITE BLOOD COUNT (AUTO) 9.2 K/uL (4.8-10.8)
[2021-11-04 05:50] LABS: ANION GAP 9.5 (8-16); CARBON DIOXIDE 29.3 mmol/L (21-32); CREATININE 1.2 mg/dL (0.6-1.3); POTASSIUM 3.8 mmol/L (3.5-5.1)
[2021-11-04 06:04] LABS: MAGNESIUM 2.3 mg/dL (1.8-2.4); PHOSPHORUS 4.5 mg/dL (2.5-4.9)
[2021-11-04] MEDS ORDERED: DEXMEDETOMIDINE HCL 100 MCG/ML 2 ML VIAL IV ONE (07:21)
[2021-11-04] MEDS: DEXMEDETOMIDINE HCL 400 MCG in NACL 0.9% 96 ML IV PRN (07:27)
[2021-11-04] MEDS ORDERED: SODIUM PHOSPHATE 118 ML ENEM RC PRN (08:50)
[2021-11-04] MEDS: PANTOPRAZOLE 40 MG INJ VIAL IVP SCH (09:00)
[2021-11-04] MEDS: MEROPENEM 1,000 MG in NACL 0.9% 100 ML IV SCH (09:00)
[2021-11-04] MEDS: POLYETHYLENE GLYCOL 17 GM/PKT NG SCH (09:00)
[2021-11-04] MEDS: ASPIRIN 81 MG TAB.CHEW PO SCH (09:00)
[2021-11-04] MEDS: FUROSEMIDE 40 MG/4 ML VIAL IVP SCH (09:00)
[2021-11-04] MEDS ORDERED: LACTULOSE 20 GM/30 ML UDC PO SCH (09:00)
[2021-11-04] MEDS: VANCOMYCIN 1,500 MG in DEXTROSE 5% 500 ML IV SCH (11:00)
[2021-11-04] MEDS: MORPHINE SULFATE 100 MG in NACL 0.9% 90 ML IV PRN ×4 (12:48→23:39)
[2021-11-05] VITALS (7 sets, daily range): BP systolic 111–128; BP diastolic 64–84
[2021-11-05] MEDS: MORPHINE SULFATE 100 MG in NACL 0.9% 90 ML IV PRN ×8 (07:20→21:00)
[2021-11-05] MEDS ORDERED: LORazepam 2 MG/ML VIAL IVP SCH (15:55)
[2021-11-05] MEDS: MORPHINE SULFATE 250 MG in NACL 0.9% 250 ML IV PRN (23:54)
[2021-11-06] VITALS: BP 124/65
[2021-11-06 04:00] VITALS: BP 116/84
[2021-11-06] MEDS: MORPHINE SULFATE 250 MG in NACL 0.9% 250 ML IV PRN ×6 (06:17→22:30)
[2021-11-06] MEDS: MORPHINE SULFATE 100 MG in NACL 0.9% 90 ML IV PRN ×3 (06:23)
[2021-11-06 08:00] VITALS: BP 138/82
[2021-11-06] MEDS ORDERED: MORPHINE SULFATE 4 MG/ML SYR IVP PRN (09:55)
[2021-11-06] MEDS ORDERED: MORPHINE SULFATE IV PRN (10:22)
[2021-11-06] MEDS ORDERED: NACL 0.9% IV PRN (10:22)
[2021-11-06 12:00] VITALS: BP 126/81
[2021-11-06] MEDS ORDERED: SCOPOLAMINE 1.5 MG/72 HR PATCH TD SCH (15:00)
[2021-11-06 16:00] VITALS: BP 116/59
[2021-11-06 20:00] VITALS: BP 122/67
[2021-11-07] VITALS: BP 108/69
[2021-11-07] MEDS: MORPHINE SULFATE 250 MG in NACL 0.9% 250 ML IV PRN ×4 (02:58→19:52)
[2021-11-07 04:00] VITALS: BP 127/82
[2021-11-07 08:00] VITALS: BP 138/85
[2021-11-07 12:00] VITALS: BP 139/82
[2021-11-07 16:00] VITALS: BP 124/68
[2021-11-07 20:00] VITALS: BP 108/70
[2021-11-08] VITALS: BP 150/68
[2021-11-08] MEDS: MORPHINE SULFATE 250 MG in NACL 0.9% 250 ML IV PRN ×6 (00:15→23:17)
[2021-11-08 04:00] VITALS: BP 134/61
[2021-11-08 08:00] VITALS: BP 122/70
[2021-11-08 12:00] VITALS: BP 126/78
[2021-11-08 16:00] VITALS: BP 126/75
[2021-11-08 20:00] VITALS: BP 130/65
[2021-11-09] VITALS: BP 114/71
[2021-11-09] MEDS: MORPHINE SULFATE 250 MG in NACL 0.9% 250 ML IV PRN (03:56)
== END 2021-11-09 08:55 | DRG 720 ==
LOC: MED 09:36 → MIC 13:07 → MMU 11-05 08:57
PROVIDERS: ADMIT Family Medicine; ATTEND Family Medicine
PROC: 5A1955Z Respiratory Ventilation, Greater than 96 Consecutive Hours (ICD-10-PCS; principal; 2021-10-22)
PROC: 0BH18EZ Insertion of Endotracheal Airway into Trachea, Via Natural or Artificial Opening Endoscopic (ICD-10-PCS; 2021-10-22)
PROC: 02H633Z Insertion of Infusion Device into Right Atrium, Percutaneous Approach (ICD-10-PCS; 2021-10-22)
PROC: B548ZZA Ultrasonography of Superior Vena Cava, Guidance (ICD-10-PCS; 2021-10-22)
DX: A41.9 Sepsis, unspecified organism (principal); K72.00 Acute and subacute hepatic failure without coma; N17.0 Acute kidney failure with tubular necrosis; J69.0 Pneumonitis due to inhalation of food and vomit; R65.21 Severe sepsis with septic shock; G92.9 Unspecified toxic encephalopathy; J96.01 Acute respiratory failure with hypoxia; J96.02 Acute respiratory failure with hypercapnia; R13.11 Dysphagia, oral phase; E43 Unspecified severe protein-calorie malnutrition; E83.39 Other disorders of phosphorus metabolism; M62.82 Rhabdomyolysis; E86.0 Dehydration; I21.4 Non-ST elevation (NSTEMI) myocardial infarction; F15.10 Other stimulant abuse, uncomplicated; B96.20 Unspecified Escherichia coli [E. coli] as the cause of diseases classified elsewhere; I46.9 Cardiac arrest, cause unspecified; K40.90 Unilateral inguinal hernia, without obstruction or gangrene, not specified as recurrent; R91.1 Solitary pulmonary nodule; K42.9 Umbilical hernia without obstruction or gangrene; N39.0 Urinary tract infection, site not specified; E66.01 Morbid (severe) obesity due to excess calories; Z16.12 Extended spectrum beta lactamase (ESBL) resistance; Z20.822 Contact with and (suspected) exposure to COVID-19; K74.60 Unspecified cirrhosis of liver; E66.9 Obesity, unspecified; T43.621A Poisoning by amphetamines, accidental (unintentional), initial encounter; Y92.89 Other specified places as the place of occurrence of the external cause; Z51.5 Encounter for palliative care; Z87.891 Personal history of nicotine dependence; Z59.02 Unsheltered homelessness; Z68.38 Body mass index [BMI] 38.0-38.9, adult
CPT/HCPCS: 31500; 36415; 36556; 36600; 70450; 71045; 71250; 80048; 80053; 80202; 80305; 81001; 82150; 82550; 82553; 82803; 83036; 83605; 83690; 83735; 83880; 84100; 84439; 84443; 84484; 85025; 85610; 85730; 87040; 87070; 87081; 87086; 87205; 93005; 94002; 94003; 96361; 96374; 99291; 99292; C9113; G0480; G0482; J0692; J1644; J1940; J2060; J2185; J2250; J2270; J2310; J2543; J2704; J3010; J3370; J3490; J7030; J7060; Q0092